=== PATIENT | male | born 1950 | race Caucasian/White ===

== ENCOUNTER 2018-12-29 09:06 | Outpatient (CLI) | payer MEDICARE ==
--- NOTE | 2018-12-29 12:30 | MRI ---
MRI OF THE LEFT SHOULDER WITHOUT CONTRAST: INDICATION: History of left shoulder strain. COMPARISON: Left shoulder radiograph dated August 30, 2014. FINDINGS: There is a complete tear of the supraspinatus with retraction of the tendon to the level of the super ior humeral head. The infraspinatus, teres minor, and subscapularis remains intact. There is mild t endinosis of the subscapularis and infraspinatus. There is no muscular atrophy identified. There is moderate tendinosis of the intraarticular biceps tendon. The biceps tendon remains located within the bicipital groove. There is suspected radial tear involving the posterior superior aspect of the glenoid labrum best seen on image 11 of series 3, image 17 of series 4, and image 17 of series 5. There is mild to moderate diffuse chondrosis involving the glenohumeral articular surface. Ther e is moderate AC joint osteoarthrosis. There is a type II acromion. IMPRESSION: 1. Complete supraspinatus tear with retraction of the tendon to the level of the superior humeral he ad. 2. Mild subscapularis and infraspinatus tendinosis. 3. Moderate biceps tendinosis. 4. Small radial tear involving the posterior superior aspect of the glenoid labrum. 5. Mild to moderate glenohumeral chondrosis. 6. Moderate acromioclavicular joint osteoarthrosis. POS: CET
== END 2018-12-29 09:07 | disposition home or self-care (01) ==
LOC: SCSMRI 09:06
PROVIDERS: ATTEND Orthopaedic Surgery
DX: S46.912A Strain of unspecified muscle, fascia and tendon at shoulder and upper arm level, left arm, initial encounter (principal); M75.122 Complete rotator cuff tear or rupture of left shoulder, not specified as traumatic; M19.012 Primary osteoarthritis, left shoulder; S43.492A Other sprain of left shoulder joint, initial encounter; M75.22 Bicipital tendinitis, left shoulder; M75.82 Other shoulder lesions, left shoulder; M25.812 Other specified joint disorders, left shoulder

== ENCOUNTER 2019-02-26 08:27 | Outpatient (CLI) | payer MEDICARE ==
[2019-02-26 12:33] LABS: #Eosinphils 0.5 thou/uL (0.0-0.7); #Lymphocytes 1.9 thou/uL (1.20-3.40); #Monocytes 0.8 thou/uL (0.11-0.59); #Neutrophils 3.8 thou/uL (1.40-6.50); %Basophils 0.5 % (0.0-1.0); %Lymphocytes 27.1 % (21.0-51.0); %Monocytes 11.3 % (0.0-10.0); %Neutrophils 54.1 % (42.0-75.0); Hemoglobin 16.5 g/dL (14.0-18.0); Mean Corpuscular HGB CONC 34.6 g/dL (32.0-36.0); Mean Corpuscular Hemoglobin 31.8 pg (27.0-31.0); Mean Corpuscular Volume 91.8 fL (78.0-98.0); Mean Platelet Volume 7.3 fL (7.4-10.4); Platelet Count 237 thou/uL (130-400); RBC Distribution Width 12.7 % (11.5-14.5); Red Blood Cell (RBC) Count 5.18 mill/uL (4.70-6.10); White Blood Cell (WBC) Count 7.1 thou/uL (4.8-10.8)
[2019-02-26 12:43] LABS: Prothrombin Time 13.1 SEC (12.0-14.7)
[2019-02-26 12:54] LABS: Anion Gap 11 mmol/L (10-20); BUN (Urea Nitrogen) 17 mg/dL (8.4-25.7); Calc. Creatinine Clearance 0 mL/min (70-130); Calcium 9.5 mg/dL (7.8-10.44); Carbon Dioxide 25 mmol/L (23-31); Chloride 107 mmol/L (98-107); Estimated GFR-MDRD 62; Glucose 98 mg/dL (80-115); Sodium 138 mmol/L (136-145)
== END 2019-02-26 08:28 | disposition home or self-care (01) ==
LOC: LABBT 08:27
PROVIDERS: ATTEND Orthopaedic Surgery
DX: Z01.818 Encounter for other preprocedural examination (principal); S46.012A Strain of muscle(s) and tendon(s) of the rotator cuff of left shoulder, initial encounter
CPT/HCPCS: 80048; 85025; 85610; 93005; 93010

== ENCOUNTER 2019-03-05 05:38 | Day surgery (SDC) | payer MEDICARE ==
[2019-02-26 11:52] VITALS: BMI 34.2
[2019-03-05] MEDS ORDERED: Fentanyl 100 MCG/2 ML VIAL ONE (06:28)
[2019-03-05] MEDS ORDERED: Midazolam HCl 2 mg/2 ml Vial ONE (06:28)
[2019-03-05] MEDS ORDERED: Bupivacaine/Epinephrine 0.25% 30 ML VIAL ONE (06:33)
[2019-03-05] MEDS ORDERED: Ropivacaine 0.2% 550 ML 550 ML NERVE BLCK SCH (07:06)
[2019-03-05] MEDS ORDERED: Ondansetron PF 4 MG/2 ML Vial IVP PRN (07:06)
[2019-03-05] MEDS ORDERED: Promethazine HCl 25 MG/ML VIAL IM PRN (07:06)
[2019-03-05] MEDS ORDERED: HYDROcodone/Acetaminophen 10/325 mg Tablet PO PRN ×2 (07:06)
[2019-03-05] MEDS ORDERED: Zolpidem Tartrate 5 MG TAB PO PRN (07:06)
[2019-03-05] MEDS ORDERED: traMADol HCl 50 MG TAB PO PRN ×2 (07:06)
[2019-03-05] MEDS ORDERED: Fentanyl 100 MCG/2 ML VIAL IV PRN (07:07)
[2019-03-05] MEDS ORDERED: Ropivacaine 0.5% HCl/PF (150 MG/30 ML VIAL) ONE (12:18)
[2019-03-05] MEDS ORDERED: Ropivacaine 0.2% HCl/PF (40 MG/20 ML VIAL) ONE (12:18)
--- NOTE | 2019-03-05 12:41 | OP ---
DATE OF PROCEDURE: 03/05/2019 PREOPERATIVE DIAGNOSES: Left full-thickness supraspinatus and infraspinatus rotator cuff tear with impingement and biceps tendinopathy. POSTOPERATIVE DIAGNOSES: Left full-thickness supraspinatus and infraspinatus rotator cuff tear with impingement and biceps tendinopathy. PROCEDURES PERFORMED: 1. Left rotator cuff repair, supraspinatus, infraspinatus, double row transosseous equivalent. 2. Biceps tenodesis, arthroscopic. 3. Subacromial decompression. C UNIX DEVELOPER: None. ANESTHESIOLOGIST: Zurdo Carlos. ANESTHESIA: The patient received a general endotracheal intubation with interscalene block. ESTIMATED BLOOD LOSS: 30 mL. TOURNIQUET TIME: None. ANTIBIOTICS: Ancef 2 g. IMPLANTS: Two Arthrex 5.5 corkscrews, two 4.75 SwiveLock anchors, and an 8 x 19.5 Bio-Tenodesis screw. COMPLICATIONS: None. HISTORY OF PRESENT ILLNESS: Mr. Michelle is a pleasant 68-year-old male, who was cleaning out his [id number] house, had a pop and continued pain in his left shoulder. I discussed with the patient MRI evidence of a full-thickness rotator cuff tear with biceps tendinopathy. I discussed with him the risks and benefits of a left shoulder arthroscopic rotator cuff repair with subacromial decompression and biceps tenodesis. I discussed the risks and benefits of surgery to include pain, scar, bleeding, infection, damage to vital structures, decreased range of motion and strength, failure of the tenodesis, Dusty deformity, damage to vital structures, loss of life or limb, and blood clots. The patient understood the risks and benefits and elected to proceed. DESCRIPTION OF PROCEDURE: Time-out was performed designating the patient's left upper extremity as the operative site based on site, consents, and marking. After time-out, the patient's left upper extremity was prepped and draped in sterile fashion. He was placed in beach chair position with bony prominences well padded. The patient had a posterior portal visualized intra-articularly and anterior portal visualized intra-articularly. The patient had a biceps at the groove of the humeral head and a full-thickness tear. There was retracted right at the joint surface. I tenotomized the patient's biceps. I found the patient's rotator interval and subscapularis, and a massive tear. I then moved subacromially. I cleaned off all the bursa and did a decompression, taking 2 to 3 mm of bone to help with visualization. I debrided the bone and took about 5 mm of the articular cartilage to help for placement of my anchors more medializing the repair given the retraction. After creating a bleeding surface and being happy with the overall position, we placed an anchor. We placed two lateral and anterior cannulas to help with our passage of sutures through the anterior cannula. I placed an anchor, passed four stitches, one in the interval subscapularis and three anteriorly on the supraspinatus into potentially beginning edge of infraspinatus. We then placed another anchor posteriorly, passing those four sutures through the infraspinatus and the portion of the infraspinatus and teres minor. We tied horizontal mattress sutures of a total of eight and placed a double row laterally transosseous equivalent passing sutures through both anterior and posterior four sutures and securing the anchor down. We had overall good repair of the cuff. I then cut the sutures, moved to the biceps, exposed it in the interval, drilled with an 8.0 drill and passed an 8.5 x 19.5 mm Bio-Tenodesis screw. I had good overall fit and happy. I washed and I closed. The patient was placed in a sling; elbow, wrist, and hand motion until followup. Job ID: [id number]
[2019-03-05] MEDS ORDERED: Ondansetron PF 4 MG/2 ML Vial ONE (12:57)
[2019-03-05] MEDS ORDERED: PHENYLEPHRINE-NS 100 MCG/ML 10 ML SYRINGE ONE (12:57)
[2019-03-05] MEDS ORDERED: ePHEDrine 50 MG/ML VIAL ONE (12:57)
[2019-03-05] MEDS ORDERED: Rocuronium Bromide 10 MG/ML (10ML VIAL) ONE (12:57)
[2019-03-05] MEDS ORDERED: Ketorolac Tromethamine 30 MG/ML VIAL ONE (12:57)
[2019-03-05] MEDS ORDERED: Glycopyrrolate 0.2 MG/ML 5 ML SYRINGE ONE (12:57)
[2019-03-05] MEDS ORDERED: PROPOFOL 200 MG/20 ML VIAL ONE (12:57)
[2019-03-05] MEDS ORDERED: Lidocaine 1% PF 5 ML VIAL ONE (12:57)
== END 2019-03-05 13:00 | disposition home or self-care (01) ==
LOC: SDC 05:38
PROVIDERS: ATTEND Orthopaedic Surgery
PROC: 0LM24ZZ Reattachment of Left Shoulder Tendon, Percutaneous Endoscopic Approach (ICD-10-PCS; principal; 2019-03-05)
PROC: 0LS24ZZ Reposition Left Shoulder Tendon, Percutaneous Endoscopic Approach (ICD-10-PCS; 2019-03-05)
PROC: 0RNK4ZZ Release Left Shoulder Joint, Percutaneous Endoscopic Approach (ICD-10-PCS; 2019-03-05)
PROC: 3E0T3BZ Introduction of Anesthetic Agent into Peripheral Nerves and Plexi, Percutaneous Approach (ICD-10-PCS; 2019-03-05)
DX: M75.122 Complete rotator cuff tear or rupture of left shoulder, not specified as traumatic (principal); M75.22 Bicipital tendinitis, left shoulder; M25.812 Other specified joint disorders, left shoulder; G89.18 Other acute postprocedural pain; I10 Essential (primary) hypertension; E78.5 Hyperlipidemia, unspecified; K21.9 Gastro-esophageal reflux disease without esophagitis; X50.1XXA Overexertion from prolonged static or awkward postures, initial encounter; Z79.82 Long term (current) use of aspirin; Z79.899 Other long term (current) drug therapy
CPT/HCPCS: 29826; 29827; 29828; 64416; 97139; A4306; C1713 ×3; J0690; J2250; J2795; J3010